=== PATIENT | male | born 1940 | race Asian ===

== ENCOUNTER 2024-09-08 23:11 | Emergency (ER) | payer MEDICARE, MEDICAID, SELFPAY ==
[2024-09-08 23:23] VITALS: BMI 22.6
[2024-09-08 23:24] VITALS: BP 100/63; PULSE 140; RESP 19; TEMP 37.3; O2SAT 88
[2024-09-08 23:33] VITALS: PULSE 90; RESP 16; O2SAT 97
[2024-09-08 23:46] VITALS: BP 101/82; PULSE 134; RESP 17; O2SAT 92
[2024-09-09 01:08] LABS: Basophils % (Auto) 0 % (0-2.5); Eosinophils # (Auto) 0.1 Thou/mm3 (0.0-0.5); Eosinophils % (Auto) 2 % (0-10); Hematocrit 40.3 % (41.0-53.0); Hemoglobin 13.4 g/dL (13.5-16.0); Immature Granulocytes % (Auto) 0 % (0-0); Immature Granulocytes Auto 0.02 Thou/mm3 (0.00-0.00); Lymphocytes # (Auto) 0.9 Thou/mm3 (1.0-4.8); Lymphocytes % (Auto) 13 % (10-50); Mean Corpuscular HGB Conc 33.3 g/dl (31.0-37.0); Mean Corpuscular Hemoglobin 30.6 pg (25.0-35.0); Mean Corpuscular Volume 92 fL (80-100); Monocytes # (Auto) 0.6 Thou/mm3 (0.0-0.8); Monocytes % (Auto) 9 % (0-12); Neutrophils # (Auto) 5.2 Thou/mm3 (1.8-7.7); Neutrophils % (Auto) 76 % (37-80); Nucleated Red Blood Cell % 0 /100 WBC (0); Platelet Count 149 Thou/mm3 (140-440); RDW Standard Deviation 45.9 fL (35.1-43.9); Red Blood Count 4.38 Miln/mm3 (4.50-5.90); White Blood Count 6.9 Thou/mm3 (3.8-10.6)
[2024-09-09 01:37] LABS: Alanine Aminotransferase 13 U/L (10-49); Albumin, Serum 3.8 gm/dL (3.4-4.8); Albumin/Globulin Ratio 1.4 (1.2-2.2); Alkaline Phosphatase 76 U/L (46-116); Anion Gap 8 (7-16); Aspartate Amino Transferase 16 U/L (0-34); BUN/Creatinine Ratio 18 Ratio (12-20); Bilirubin,Total 0.6 mg/dL (0.3-1.2); Blood Urea Nitrogen 27 mg/dL (9-23); Calcium (Corrected) 9.2 mg/dL (8.5-10.1); Carbon Dioxide 25.4 mMol/L (20.0-31.0); Chloride 107 mMol/L (98-107); Creatinine (Component) 1.5 mg/dL (0.6-1.3); Estimated Creatinine Clearance 32.9 mL/min (>60); Globulin 2.7 gm/dL (2.3-3.5); Glucose 135 mg/dL (74-106); Osmolality,Calculated 286 (275-295); Potassium 3.8 mMol/L (3.4-5.1); Sodium 140 mMol/L (136-145); Total Protein 6.5 gm/dL (5.7-8.2); eGFR 46 See Note
[2024-09-09 01:43] LABS: Collection Type, Urine Voided; Squamous Epithelial Cell,Urine 0 /hpf (0-5)
[2024-09-09 01:51] LABS: Bilirubin,Urine Negative (Negative); Blood,Urine Negative (Negative); Clarity,Urine Clear (Clear/Hazy); Color,Urine Yellow (Lt Yel-Yel); Glucose, Urine Negative (Negative); Hyaline Casts,Urine 1 /hpf (0-1); Ketones,Urine Negative (Negative); Leukocyte Esterase,Urine Negative (Negative); Nitrite,Urine Negative (Negative); Protein,Urine 1+ (Neg - Trace); RBC,Urine 1 /hpf (0-3); Specific Gravity,Urine 1.021 (1.001-1.035); Urobilinogen,Urine Negative mg/dL (0.0-1.0); WBC,Urine 2 /hpf (0-5)
--- NOTE | 2024-09-09 02:33 | PD.EDADULT ---
ED General RME/HPI General Chief complaint: General Adult/Misc Complain Stated complaint: BEHAVIORAL ISSUES Time Seen by Provider: 09/09/24 00:52 Arrival date/time: 09/08/24 23:11 RME / HPI RME / HPI narrative: Dr. Bates's Main ED Evaluation: 84yo male with a history of HTN, CKD, BPH, neoplasm of the stomach and colon SAL[facility]ATORE from [facility] presents to the ED for a chief complaint of behavioral issues. Per EMS, patient was sent over due being agitated and hitting facility staff members. Otherwise, no N/V, fever, chills or any other associated symptoms reported. Related Data Allergies Allergy/AdvReac Type Severity Reaction Status Date / Time No Known Allergies Allergy Verified 09/08/24 23:31 Review of Systems Review of Systems Systems Reviewed: All systems reviewed, normal except as documented ED Exam Narrative Physical exam: General: Non-toxic, well appearing, in no acute distress, and appears stated age and well developed and well nourished. Head: Normocephalic and atraumatic. Eyes: Aproptotic, extraocular movements intact. Nose: Nares without evidence of rhinorrhea. Neck: Supple without menigismus without lympadenopathy. Heart: Tachycardic in the 130s, regular rhythm without murmur, gallops, or rubs. Lungs: Clear to auscultation without wheezing, rales, or rhonchi. Abdomen: Soft, non distended. No tenderness. Normal bowel sounds. Negative Godinez sign and no McBurney?s point tenderness. No guarding, rebound, or rovsing. Back: No costovertebral angle tenderness. Neurological: Alert and oriented to person, place, time. Extremities: no cyanosis or edema. Skin: no rashes, ecchymosis, or lesions. Course Quality Measures none Orders Category Date Time Status EKG (ED ONLY) *Do not use* NOW Care 09/08/24 23:48 Completed EKG (ED Only) Stat Exams 09/08/24 23:48 Ordered CBC Stat Lab 09/09/24 01:02 Completed CMP [Comprehensive Metabolic Panel] Stat Lab 09/09/24 01:02 Completed Urinalysis Stat Lab 09/09/24 01:27 Completed DiphenhydrAMINE [Benadryl] Med 09/09/24 03:41 Discontinued 50 mg PO X1 ONE LORazepam [Ativan] Med 09/09/24 03:10 Discontinued 2 mg PO X1 ONE Vital Signs Vital signs: Vital Signs Temperature 99.1 F 09/08/24 23:24 Pulse Rate 140 H 09/08/24 23:24 Respiratory Rate 19 09/08/24 23:24 Blood Pressure 100/63 09/08/24 23:24 Pulse Oximetry (%) 88 L 09/08/24 23:24 Oxygen Delivery Method Room Air 09/08/24 23:24 Discharge Plan Prescriptions/Referrals Referrals: Rashid Abarca MD [Primary Care Provider] - In 1 week Problem List Clinical Impression: Behavior problem Patient/Caregiver Discharge Instructions Print Language: Kittitian MDM Patient Acuity Low Acuity (complete MDM as needed) Narrative: Scribe Attestation: 09/09/24 - Justine Dumont am scribing for and in the presence of Dr. Bates. 0509: Repeat HR is 81. Patient is resting comfortably and is not in any acute distress. Patient is stable to be discharged back to the SNF. 0600: Care signed out to Dr. Xiao (emergency physician). Past medical, surgical, social and family history reviewed. Vitals and home medications reviewed. Results and treatment plan discussed. They will assume the care of the patient at this time and will follow the patient, pending returning to SNF/social media marketer consultation. Clinical Information Provided by: EMS Medical Records reviewed [facility] (Per chart review, patient has no previous ED visits or admissions to this facility.) and [facility] (Per [facility] records, patient has a history of HTN, CKD, BPH, and neoplasm of the stomach and colon.) Meds/Rx considered, not ordered None Labs/Rad/Tests considered, not ordered None Chronic Illness/Social Conditions Explain: Resides in a senior living. History of HTN, CKD, BPH, neoplasm of the stomach and colon. EKG EKG Interpretation(s): EKG done at 2319, sinus tachycardia, rate of 146, no ST elevations or depressions, QTc: 415, no STEMI, according to my interpretation. Labs Labs: Interpreted by me Lab(s) Interpretation(s): CBC is normal, Creatinine is 1.5, UA is unremarkable, according to my interpretation. Medication Administration(s) Medication Administration History Discontinued Medications Diphenhydramine HCl (Diphenhydramine 25 Mg Capsule) 50 mg PO X1 ONE Stop: 09/09/24 03:42 Last Admin: 09/09/24 03:51 Dose: 50 mg Documented By: CB Lorazepam (Lorazepam 0.5 Mg Tablet) 2 mg PO X1 ONE Stop: 09/09/24 03:11 Last Admin: 09/09/24 03:15 Dose: 2 mg Documented By: CB see above Diagnosis Differential Diagnosis ED Complaint MDM: behavioral problem
[2024-09-09] MEDS: LORazepam 0.5 MG TABLET 2 MG PO (03:15)
[2024-09-09] MEDS: DiphenhydrAMINE 25 MG CAPSULE 50 MG PO (03:51)
[2024-09-09 05:11] VITALS: BP 118/80; PULSE 85; RESP 20; TEMP 36.7; O2SAT 95
--- NOTE | 2024-09-09 06:35 | EDNOTE_ITS ---
Emergency Room Addendum <Shyam iXao MD - Last Filed: 09/09/24 06:36> Addendum Narrative: Patient had aggressive behavior towards the SNF staff. He has been resting comfortably. Awaits evaluation. <Akilah Thomas - Last Filed: 09/09/24 08:24> Addendum Narrative: 0600: Assumed care from previous physician Dr. Li. Evidently patient had aggressive behavior towards the SNF staff. He has been resting comfortably. Awaits /dialysis social worker evaluation. 0820: dining services manager report patient would need to return to their [facility] facility. Will DC back to [facility].
--- NOTE | 2024-09-09 06:35 | PD.EDADDENDU ---
Emergency Room Addendum <Shyam Xiao MD - Last Filed: 09/09/24 06:36> Addendum Narrative: Patient had aggressive behavior towards the SNF staff. He has been resting comfortably. Awaits evaluation. <Akilah Thomas - Last Filed: 09/09/24 08:24> Addendum Narrative: 0600: Assumed care from previous physician Dr. Li. Evidently patient had aggressive behavior towards the SNF staff. He has been resting comfortably. Awaits /high school social studies tutor evaluation. 0820: gate services supervisor report patient would need to return to their long-term facility. Will DC back to [facility].
--- NOTE | 2024-09-09 08:54 | PC.CC ---
GUSTAVO was consulted by MELITON Hand for transportation back to [facility]. RAMAKRISHNAW arranged transportation with [facility] [id number] and informed them that we use [facility].
[2024-09-09 10:08] VITALS: BP 106/62; PULSE 74; RESP 16; TEMP 36.4; O2SAT 94
[2024-09-09 11:28] VITALS: BP 129/93; PULSE 66; RESP 16; TEMP 36.3; O2SAT 98
== END 2024-09-09 19:25 | disposition skilled nursing facility (03) ==
PROVIDERS: Emergency Medicine; Emergency Provider Emergency Medicine; PCP Hospitalist
DX: R45.1 Restlessness and agitation (principal); I12.9 Hypertensive chronic kidney disease with stage 1 through stage 4 chronic kidney disease, or unspecified chronic kidney disease; N18.9 Chronic kidney disease, unspecified; N40.0 Benign prostatic hyperplasia without lower urinary tract symptoms
CPT/HCPCS: 36415; 80053; 81001; 85025; 93005; 99283; A9270